=== PATIENT | female | born 1945 | race Caucasian/White ===

== ENCOUNTER 2016-12-16 17:53 | Inpatient (IN) | payer MEDICARE, OTHER ==
--- NOTE | ~2016-12-16 | CR269 ---
[facility] A Service of [facility] RADIOLOGY TEXT RESULTS PATIENT: JOHNNY ANTONIO LOCATION: A - : [birth year] UNIT #: [id number] AGE: [address]: Jimi Stoddard MD SEX: F ORDER DR: [id number] [facility] [address] [place], [place] [address] [id number] I MR#: [id number] #: [id number] NAME: JOHNNY ANTONIO : 1945 SEX: F STUDY DATE/TIME: 12/18/2016 8:33 UNIT: [facility] ROOM: [facility] STUDY DESCRIPTION: CR Upper GI and SBFT Attending Physician: Jimi Stoddard M.D. Ordering Physician: Ulisses Nava Jr., M.D. Primary Care Physician: Primary Care Physician No MEDICAL IMAGING REPORT This report is preliminary unless electronic signature is present EXAM Upper GI series with small bowel follow-through INDICTIONS Nausea and vomiting. This started on December 16, 2016. Patient has a history of multiple small bowel obstructions, may be related to adhesive disease. 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 She was subsequently administered thin barium only and fluoroscopic images were obtained of the upper abdomen. Patient was again noted to have abnormal esophageal motility with multiple tertiary contractions seen. She also has a moderate hiatal hernia. This has been seen on prior exams. The remainder of the stomach was grossly unremarkable and contrast passed easily into the duodenum. Small bowel transit time was dilated. I suspect there is probably some contrast within the colon on 3-hour 15-minute images and is definitive as identification noted on the 4 hour and 30 minutes as is identified on multiple prior studies this patient has dilated patulous loops of small bowel and mucosal fold irregularity likely reflecting some edema. 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 Exact transition point cannot be determined on the basis of this examination, but as on prior studies is favored to be new to the distal ileum. IMPRESSION 1. Partial small bowel obstruction with delayed transit time. Patient has dilated, patulous loops of small bowel, particularly within the left lower quadrant and transition point is favored to be within the [id number]-eysmzn ileum as has been identified on prior exams. 2. Abnormal esophageal motility with multiple tertiary contractions again noted. This has been identified on prior examinations. [facility] A Service of [facility] RADIOLOGY TEXT RESULTS PATIENT: JOHNNY ANTONIO LOCATION: [facility] 225-01 : [birth year] UNIT #: [id number] AGE: [address]: Jimi Stoddard MD SEX: F ORDER DR: 3. Moderate hiatal hernia. 4. Duodenal diverticulum. Total fluoroscopy time was 1.7 minutes and a total of 20 fluoroscopic images were obtained. Dictated by... Sharita Martinez M.D. THIS IS AN ELECTRONICALLY VERIFIED REPORT Sharita Martinez M.D. at 12/19/2016 4:57 PM CHARLES/cornelio TD: 12/19/2016 09:47 JOB #: [id number] MEDICAL IMAGING REPORT Page 1 of 1 COPY
--- NOTE | ~2016-12-16 | DS ---
Unit #: [id number] #: [id number] Patient: JOHNNY ANTONIO [id number] [address] [place], [place] [address] [id number] I MR#: [id number] NAME: JOHNNY ANTONIO. ROOM: 225 Age: 71 Sex: F Admission Date: 12/16/2016 : 1945 Discharge Date: 12/21/2016 Attending Physician: Jimi Stoddard M.D. Primary Care Physician: No Primary Care Physician DISCHARGE SUMMARY DISCHARGE DIAGNOSES 1. Small bowel obstruction. We have been treating this conservatively. The patient is passing stool and eating a regular diet without nausea or vomiting. 2. History of asthma. 3. Peptic ulcer disease. 4. History of remote deep venous thrombosis. 5. History of depression. 6. History of glaucoma. PROCEDURES None. 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 IMAGING 1. X-ray of abdomen on 12/16/16. Impression: Normal bowel gas pattern. No evidence of obstruction. 2. Small bowel follow through x-ray. Impression: Partial small bowel obstruction with delayed transient time. The patient has dilated, patulous loops of small bowel particularly within the left lower quadrant in transition zone and is favored to be within the mid to distal ileum, as have been identified on prior exams. Abnormal esophageal motility with multiple tertiary contractions again noted. This has been identified on prior examinations and a moderate hiatal hernia and four duodenal diverticulum. 3. X-ray abdomen on 12/19/16. Impression: Barium within the small bowel and colon in a nonobstructed pattern. On the day prior to admission, the patient's labs include BMP: Glucose 115, BUN less than 5, sodium 135, potassium 4.9, chloride 105, CO2 22, calcium 8.5. CBC: WBC 7.2, RBC 4.04, hemoglobin 7.9, hematocrit 34.4, MCV 85.2, MCH 27.1, MCHC 31.9, RDW 14.5, platelets 190, MPV 9.0. HOSPITAL COURSE The patient is a 71-year-old female with a past medical history of recurrent partial small bowel obstruction with chronic abdominal pain, multiple admissions in the past and history of multiple surgeries, small bowel obstruction, history of peptic ulcer disease, esophageal reflux disease, asthma, depression, chronic back pain, chronic headache and history of glaucoma. The patient presented to the emergency department due to abdominal pain, nausea and vomiting. She describes the pain has persistent since the morning of admission. She did have a bowel movement Unit #: [id number] #: [id number] Patient: JOHNNY ANTONIO on the morning of admission. After that, she has only been passing gas. She believes that her symptoms are similar to other small bowel obstruction. She was admitted for abdominal pain with high likelihood of small bowel obstruction. The patient underwent a CT (1) reports she had refused CT on admission. She also refused an NG tube for bowel decompression. She was seen in consultation with [facility] who had recommended conservative management, as the patient has had multiple surgeries and they were reluctant to perform another surgery. The patient also had radiation induced enteritis. The patient did have a small bowel follow through with result as dictated above. After she did have a bowel movement, a KUB upright was performed which saw that the barium was in the colon in a nonobstructed pattern. Therefore, the patient had her diet slowly advanced under Surgery's recommendation. At this time, the patient is able to have bowel movements. She really has no abdominal pain. She is tolerating a regular diet with no nausea, vomiting. Therefore, she is ready to be discharged home. DISCHARGE MEDICATION 1. Albuterol inhaler two puffs every four as needed for shortness of breath and/or wheezing. 2. Gabapentin 300 mg orally daily. 3. Amitriptyline 25 mg orally twice daily. 4. Phenergan 12.5 mg every six hours as needed for nausea and vomiting. Prescription for 12 was given. 5. Colace 100 mg orally daily. 6. Xalatan one drop into each eye at bedtime. 7. Protonix 40 mg orally daily. Patient discharged home in stable condition. Follow up with her primary care physician within one to two weeks. DIET Nonrestricted. ACTIVITY Nonrestricted. Dictated by... Ronnie Gloria PA-C for Carter Bejarano/cherelle TD: 12/22/2016 11:14 JOB #: [id number] DISCHARGE SUMMARY Page 1 of 1 X X DISCHARGE SUMMARY
--- NOTE | ~2016-12-16 | CR4 ---
[facility] A Service of [facility] RADIOLOGY TEXT RESULTS PATIENT: JOHNNY ANTONIO LOCATION: [facility] : [birth year] UNIT #: [id number] AGE: [address]: Jimi Stoddard MD SEX: F ORDER DR: [id number] [facility] [address] [place], [place] [address] [id number] I MR#: [id number] Acc #: [id number] NAME: JOHNNY ANTONIO : 1945 SEX: F STUDY DATE/TIME: 12/19/2016 7:37 UNIT: [facility] ROOM: [facility] STUDY DESCRIPTION: CR Abdomen Flat Upright or Dec Attending Physician: Jimi Stoddard M.D. Ordering Physician: Isaak Baxter M.D. Primary Care Physician: Primary Care Physician No MEDICAL IMAGING REPORT This report is preliminary unless electronic signature is present EXAM Flat and upright abdomen INDICATION Abdominal distension since December 16. COMPARISON 12/16/2016. FINDINGS Barium is seen within the small bowel and colon in a nonobstructed pattern. There is no free air under the diaphragm. A right hip arthroplasty is present. IMPRESSION Barium within the small bowel and colon in a nonobstructed pattern. Dictated by... Dereje Jorge M.D. THIS IS AN ELECTRONICALLY VERIFIED REPORT Dereje Jorge M.D. at 12/20/2016 5:12 PM JAVY/jason TD: 12/19/2016 09:38 JOB #: [id number] MEDICAL IMAGING REPORT Page 1 of 1 COPY
--- NOTE | ~2016-12-16 | CR7 ---
[facility] A Service of [facility] & [facility] RADIOLOGY TEXT RESULTS PATIENT: JOHNNY ANTONIO LOCATION: [place] [address] : [birth year] UNIT #: [id number] AGE: [address]: Kayla Sim MD SEX: F ORDER DR: [id number] [facility] [address]. [place], [place] [address] [id number] I MR#: [id number] Acc #: [id number] NAME: JOHNNY ANTONIO : 1945 SEX: F STUDY DATE/TIME: 12/16/2016 19:02 UNIT: [facility] ROOM: [id number] STUDY DESCRIPTION: CR Abdomen Single AP View Attending Physician: Jimi Stoddard M.D. Ordering Physician: Teetee Machuca M.D. Primary Care Physician: No Primary Care Physician MEDICAL IMAGING REPORT This report is preliminary unless electronic signature is present EXAM Abdomen INDICATIONS Abdominal pain, bloating since 2 o'clock today. FINDINGS A supine view was obtained. The bowel gas pattern is normal. There is right hip prosthesis present. There is postoperative change with fusion of L4 and L5. IMPRESSION Normal bowel gas pattern. No evidence of obstruction Dictated by... Gabriel Peng M.D. THIS IS AN ELECTRONICALLY VERIFIED REPORT Gabriel Peng M.D. at 12/18/2016 7:14 AM NALDO/maranda TD: 12/16/2016 22:36 JOB #: [id number] MEDICAL IMAGING REPORT Page 1 of 1 COPY
--- NOTE | ~2016-12-16 | HP ---
Unit #: [id number] #: [id number] Patient: JOHNNY ANTONIO [id number] [address] [place], [place] [address] [id number] I MR#: [id number] NAME: JOHNNY ANTONIO. ROOM: 225 Age: 71 Sex: F Admission Date: 12/16/2016 : 1945 Attending Physician: Jimi Stoddard M.D. Primary Care Physician: No Primary Care Physician HISTORY AND PHYSICAL CHIEF COMPLAINT Abdominal pain, nausea. HISTORY OF PRESENT ILLNESS This is a 71-year-old very pleasant lady with a history of recurrent partial small bowel obstruction with chronic abdominal pain, multiple admissions in the past and history of multiple surgeries, partial small bowel obstruction being resolved with conservative treatment in the past, history of peptic ulcer disease, gastroesophageal reflux disease, asthma, depression, chronic back pain, chronic headache and history of glaucoma. She presented to the emergency room today with a chief complaint of having abdominal pain and nausea, which she described as persistent pain since morning. She had her last bowel movement this morning. After that is not passing gas. She thinks that her symptoms are similar to the previous episode of small bowel obstruction. She denies fever, chills, cough, diarrhea, blood in the stool or any other complaint. PAST MEDICAL HISTORY 1. History of recurrent partial small bowel obstruction along with chronic abdominal pain, requiring multiple admissions. 2. History of lysis of adhesion resection in the past. 3. 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 4. History of peptic ulcer disease. Last EGD in 05/2016, revealing large hiatal hernia, (1) ulcers/gastritis/ esophageal ring, which was dilated by Dr. Aceves. 5. History of asthma. 6. Degenerative joint disease. 7. Depression. 8. Chronic back pain, status post multiple back surgeries. 9. History of chronic headache. 10. History of left arm DVT in 05/2015 which was treated with Eliquis at that time. PAST SURGICAL HISTORY 1. History of wide esophageal resection in the past. 2. History of total abdominal hysterectomy and bilateral salpingo-oophorectomy along with radiation therapy in 2000 for endometrial carcinoma. 3. History of EGD. 4. History of multiple back surgeries. 5. 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 6. History of bilateral carpal tunnel release and transposition of left ulnar nerve. Unit #: [id number] #: [id number] Patient: JOHNNY ANTONIO 7. History of laparoscopic cholecystectomy in 10/2012. 8. History of right hip revision times two. 9. History of removal of scar from abdomen. SOCIAL HISTORY The patient lives alone, but her son lives across the street. She stopped smoking 25-26 years ago. Does not drink alcohol. FAMILY HISTORY History of (2) ALLERGIES Dilaudid, Demerol and Zofran. HOME MEDICATIONS 1. Colace 100 mg daily. 2. Latanoprost 2.5 eyedrops daily. 3. Ventolin 2 puffs q.4 h. p.r.n. 4. Phenergan 25 mg p.o. q.6 h. p.r.n. 5. Amlodipine 25 mg daily. 6. Gabapentin 300 mg daily. 7. Protonix 40 mg daily. REVIEW OF SYSTEMS Negative except as per history of present illness. PHYSICAL EXAMINATION GENERAL: Middle-aged female lying in the bed comfortably. Currently not in any distress. She is alert, awake and oriented times three. VITALS: Temperature 98.7, heart rate 101, respiratory rate 18, blood pressure 131/66, oxygen saturation 99% on room air. HEENT: Head is normocephalic, atraumatic. NECK: Supple. No jugular venous distension. No thyromegaly. No lymphadenopathy. LUNGS: Clear to auscultation. No rhonchi. No wheezing. HEART: S1 and S2. Regular rate and rhythm. ABDOMEN: Soft, mild generalized lower abdominal tenderness. Positive bowel sounds. No guarding. No rigidity. SKIN: Color normal. Warm and dry. EXTREMITIES: Inspection normal. No cyanosis, clubbing or edema. NEUROLOGIC: She is alert and oriented times four. Cranial nerves II through XII intact. Sensation is normal. Motor 5/5 on both sides. PSYCHIATRIC: She has normal mood and affect. DIAGNOSTIC STUDIES IMAGING: X-ray of the abdomen is unremarkable. LABORATORY: Urinalysis is negative. Chemistry, sodium 137, potassium 3.6, chloride 102, glucose 98, BUN 11, creatinine 0.9, LFTs within normal limits. Amylase and lipase normal. Lactic acid level 0.9, INR 0.9. CBC, white blood cell count 10, hemoglobin 12, hematocrit 39, platelets 215. ASSESSMENT 1. Abdominal pain with nausea, with a history of recurrent partial small bowel obstruction. Symptoms similar to previous small bowel obstruction. Her symptoms in the past most often resolved with conservative treatment. CT scan is not done today. She has had multiple CT scans this year. She is reluctant to go for CT at this Unit #: [id number] #: [id number] Patient: JOHNNY ANTONIO time. She refuses NG tube placement. Will keep the patient n.p.o. and IV fluids. Ask LSA to evaluate. 2. History of peptic ulcer disease/large hiatal hernia/gastritis with a history of esophageal ring. IV Protonix. 3. History of asthma. Continue Ventolin p.r.n. 4. History of depression. 5. History of glaucoma. 6. Degenerative joint disease/chronic back pain. 7. DVT prophylaxis. Will place the patient on SCDs. Dictated by Carter Sanchez TD: 12/17/2016 05:59 JOB #: [id number] HISTORY AND PHYSICAL Page 1 of 1 X X HISTORY AND PHYSICAL
[~2016-12-16 17:53] MED LIST: ACETAMINOPHEN PO; ADVAIR 100-501 EACH IH; ADVAIR 250-501 EAC1 IH; ADVAIR 250-501 EACH IH; ADVAIR 250-501 EACH INH; ADVAIR 2501 DISK W/1 INH; ADVAIR 2501 DISK W/D PO; ALBUTEROL17 G1 IH; ALBUTEROL17 GM INH; AMITRIPTYLINE H25 MG PO; AMITRIPTYLINE100 MG PO; AMITRYPTYLINE PO; AMOXICILLIN875 MG PO; ANEXSIA 7.5/3251 TA1 PO; ARTHROTEC 501 TAB.EC PO; BACLOFEN10 MG PO; BACLOFEN20 M1 PO; BACLOFEN20 MG PO; BENTYL20 M1 PO; BENTYL20 MG; BENTYL20 MG PO; BENZONATATE PO; CIPRO PO; COLACE PO; COUMADIN PO; CVS PHARMACY; CYTOTEC PO; DICLOFENAC PO; DICYCLOMINE HCL20 MG PO; DOCUSATE SODIU100 MG PO; DOK100 MG PO; DOXEPIN; DOXEPIN HCL25 MG PO; DOXEPIN PO; ELIQUIS5 MG PO; FERRO-TIME325 MG PO; FERROUS GL325 ( 36 ) PO; FERROUS SULFATE1 TAB PO; FLEXERIL; FLEXERIL10 MG PO; GABAPENTIN300 M2 PO; GABAPENTIN300 MG PO; HYDROCODON-ACE1 EAC5 PO; HYDROCODON-ACE1 EACH PO; HYDROCODONE-APA1 T44 PO; IRON SUPPLEMENT1 TAB PO; IRON325 ( 65 ) PO; IRON325 ( 652 PO; LATANOPROST2.5 ML OP; LATANOPROST2.5 ML OU; LEVAQUIN PO; LIORESAL10 MG PO; LORTAB 10-5001 EACH PO; LORTAB 5-325 M1 EACH PO; LORTAB 5/500 TA1 TA1 PO; LORTAB 7.5-5001 TAB PO; LOVENOX SUBQ; MEDROL PO; MELOXICAM15 MG PO; MIRALAX255 GM PO; MOBIC PO; MOBIC15 MG PO; MOBIC7.5 MG/5 M PO; MOTRIN600 MG PO; MUCINEX D ER T1 EAC1 PO; MUCINEX D ER T1 EACH PO; MUCINEX DM ER1 EAC1 PO; MUCINEX DM TABL1 BOX PO; MUCINEX DM1 TAB.SR . PO; MUCINEX22 ML PO; MUCUS ER600 MG PO; NEURONTIN; NEURONTIN PO; NEURONTIN300 MG PO; NORCO 5/325 TAB1 TAB PO; OMEPRAZOLE40 MG PO; OXYCONTIN; OXYIR5 MG; PANTOPRAZOLE SO40 MG PO; PERCOCET5/325 PO; PHENERGAN; PHENERGAN PO; PHENERGAN SUPP25 MG PR; PHENERGAN12.5 M1 PR; PHENERGAN25 M1 DOB; PHENERGAN25 M1 PO; PHENERGAN25 MG PO; PREMARIN; PROMETHAZINE HC25 MG PO; PROTONIX; PROTONIX PO; PROTONIX20 MG PO; REGLAN PO; REGLAN10 MG PO; SINGULAIR PO; TESSALON200 MG PO; ULTRAM PO; VENTOLIN HFA 90MCG INH; VENTOLIN IH; VENTOLIN5 MG/ML IH; VENTOLIN5 MG/ML INH; VICODIN 5/1 TAB 5/50 PO; VICODIN 5/500 T1 TAB PO; XALATAN OP; XALATAN OU; Z-PAK; ZITHROMAX PO; ZOFRAN PO; [UNRECOGNIZED DRUG - REMARK]; [UNRECOGNIZED DRUG - REMARK]
[2016-12-16 19:06] LABS: BASOPHIL% 0.3 % (0-2.5); EOSINOPHIL% 0.4 % (0.0-7.0); HEMATOCRIT 39.8 % (35.0-45.0); HEMOGLOBIN 12.8 gm/dL (12.0-16.0); LYMPHOCYTE# 1.9 X10e3 (1.0-3.5); MEAN CELL VOLUME 84.6 FL (83-96); MEAN CORPUSCULAR HEMOGLOBIN 27.3 PG (28-34); MEAN CORPUSCULAR HGB CONC 32.3 g/dL (30-36); MEAN PLATELET VOLUME 9.5 FL (6.5-11.5); MONOCYTE# 0.7 X10e3 (0-1.0); MONOCYTE% 6.4 % (3.0-12.0); NEUTROPHIL# 8.1 X10e3 (1.5-7.1); NEUTROPHIL% 74.9 % (40-75); PLATELET COUNT 215 X10e3 (140-420); RED CELL DISTRIBUTION WIDTH 15.3 % (11.0-15.5); WHITE BLOOD COUNT 10.8 X10e3 (4.0-10.5)
[2016-12-16 19:17] LABS: DIFF IND NO
[2016-12-16 19:25] LABS: INR 0.9; PARTIAL THROMBOPLASTIN TIME 23.4 SECONDS (23.5-31.3); PROTHROMBIN TIME (PATIENT) 9.4 SECONDS (9.6-11.5)
[2016-12-16 19:29] LABS: ALBUMIN SERUM 4.3 g/dL (3.5-5.0); BILIRUBIN, DIRECT 0.1 mg/dL (0.0-0.2); BILIRUBIN,INDIRECT 0.2 mg/dL (0.0-0.9); BILIRUBIN,TOTAL 0.3 mg/dL (0.2-2.0); BUN/CREATININE RATIO 12.22; CREATININE SERUM 0.9 mg/dL (0.6-1.4); GLOM FILT RATE Estimated 65.3 mL/min (>60); POTASSIUM 3.6 mmol/L (3.5-5.1)
[2016-12-16 20:04] LABS: URINE SOURCE CLEAN CATCH
[2016-12-16 20:09] LABS: URINE APPEARANCE CLEAR; URINE BILIRUBIN NEG (NEG); URINE BLOOD TRACE (NEG); URINE COLOR YELLOW; URINE GLUCOSE NEG (NEG); URINE KETONE NEG (NEG); URINE LEUKOCYTE ESTERASE NEG (NEG); URINE NITRATE NEG (NEG); URINE PROTEIN NEG (NEG); URINE SPECIFIC GRAVITY 1.008 (1.003-1.035); URINE UROBILINOGEN 0.2 MG/DL (NEG)
[2016-12-16 20:12] LABS: URINE BACTERIA AUWI NEG (NEGATIVE); URINE SQUAMOUS EPITHELIAL CELL NONE SEEN /[HPF]; UWBCS1 AUWI 0-2 (0-5)
[2016-12-16 20:18] LABS: CULTURE INDICATED? NO
[2016-12-16] MEDS ORDERED: PHENERGAN25 M1 PO (20:26)
[2016-12-16] MEDS ORDERED: ALBUTEROL17 GM INH (20:26)
[2016-12-16] MEDS ORDERED: GABAPENTIN300 MG PO (20:27)
[2016-12-16] MEDS ORDERED: AMITRIPTYLINE H25 MG PO (20:27)
[2016-12-16] MEDS ORDERED: DOCUSATE SODIU100 MG PO (20:27)
[2016-12-16] MEDS ORDERED: PANTOPRAZOLE SO40 MG PO (20:27)
[2016-12-16] MEDS ORDERED: LATANOPROST2.5 ML OU (20:28)
[2016-12-17 06:38] LABS: CALCIUM SERUM 8.2 mg/dL (8.4-10.2); CREATININE SERUM 0.7 mg/dL (0.6-1.4); GLOM FILT RATE Estimated 88.4 mL/min (>60); POTASSIUM 4.3 mmol/L (3.5-5.1)
[2016-12-18 07:00] LABS: HEMATOCRIT 34.8 % (35.0-45.0); HEMOGLOBIN 11.1 gm/dL (12.0-16.0); MEAN CELL VOLUME 85.3 FL (83-96); MEAN CORPUSCULAR HEMOGLOBIN 27.2 PG (28-34); MEAN CORPUSCULAR HGB CONC 31.9 g/dL (30-36); MEAN PLATELET VOLUME 9.1 FL (6.5-11.5); RED BLOOD COUNT 4.09 X10e (3.90-5.30); RED CELL DISTRIBUTION WIDTH 14.8 % (11.0-15.5); WHITE BLOOD COUNT 7.5 X10e3 (4.0-10.5)
[2016-12-18 07:25] LABS: ALBUMIN SERUM 3.3 g/dL (3.5-5.0); ALKALINE PHOSPHATASE 57 U/L (32-92); ALT (SGPT) 20 U/L (10-40); AST (SGOT) 27 U/L (10-42); BILIRUBIN,TOTAL 0.7 mg/dL (0.2-2.0); BLOOD UREA NITROGEN <5 mg/dL (9-23); BUN/CREATININE RATIO 8.33; CALCIUM SERUM 8.6 mg/dL (8.4-10.2); CARBON DIOXIDE 26 mmol/L (22-31); CHLORIDE 105 mmol/L (100-111); CREATININE SERUM 0.6 mg/dL (0.6-1.4); GLUCOSE FASTING 97 mg/dL (70-110); POTASSIUM 3.4 mmol/L (3.5-5.1); PROTEIN TOTAL SERUM 6.4 g/dL (6.0-8.3); SODIUM 138 mmol/L (135-145)
[2016-12-19 08:31] LABS: BUN/CREATININE RATIO 6.25; CALCIUM SERUM 8.6 mg/dL (8.4-10.2); CREATININE SERUM 0.8 mg/dL (0.6-1.4); GLOM FILT RATE Estimated 75.3 mL/min (>60); MAGNESIUM 1.9 mg/dL (1.6-3.0); POTASSIUM 4.2 mmol/L (3.5-5.1)
[2016-12-20 07:47] LABS: CALCIUM SERUM 8.5 mg/dL (8.4-10.2); CARBON DIOXIDE 22 mmol/L (22-31); CHLORIDE 105 mmol/L (100-111); CREATININE SERUM 0.6 mg/dL (0.6-1.4); GLUCOSE FASTING 115 mg/dL (70-110); POTASSIUM 4.9 mmol/L (3.5-5.1); SODIUM 135 mmol/L (135-145)
[2016-12-20 07:59] LABS: BLOOD UREA NITROGEN <5 mg/dL (9-23); BUN/CREATININE RATIO 8.33
[2016-12-20 11:43] LABS: HEMATOCRIT 34.4 % (35.0-45.0); HEMOGLOBIN 10.9 gm/dL (12.0-16.0); MEAN CELL VOLUME 85.2 FL (83-96); MEAN CORPUSCULAR HEMOGLOBIN 27.1 PG (28-34); MEAN CORPUSCULAR HGB CONC 31.9 g/dL (30-36); RED BLOOD COUNT 4.04 X10e (3.90-5.30); RED CELL DISTRIBUTION WIDTH 14.5 % (11.0-15.5); WHITE BLOOD COUNT 7.2 X10e3 (4.0-10.5)
== END 2016-12-21 12:21 | disposition home or self-care (01) | DRG 390 ==
LOC: CED 17:53 → C2A 20:45 → CEDOF 20:45 → CED 21:25 → C2A 21:25 → CEDOF 22:39 → C2A 22:39
PROVIDERS: Emergency Medicine; Internal Medicine; Physician Assistant Medical; Surgery
PROC: 05H533Z Insertion of Infusion Device into Right Subclavian Vein, Percutaneous Approach (ICD-10-PCS; principal; 2016-12-18)
PROC: B546ZZA Ultrasonography of Right Subclavian Vein, Guidance (ICD-10-PCS; 2016-12-18)
DX: K56.5 Intestinal adhesions [bands] with obstruction (postinfection) (principal); F32.9 Major depressive disorder, single episode, unspecified; Z87.11 Personal history of peptic ulcer disease; K21.9 Gastro-esophageal reflux disease without esophagitis; J45.909 Unspecified asthma, uncomplicated; R51 Headache; H40.9 Unspecified glaucoma; M54.9 Dorsalgia, unspecified; G89.29 Other chronic pain; M19.90 Unspecified osteoarthritis, unspecified site; Z86.718 Personal history of other venous thrombosis and embolism; Z90.710 Acquired absence of both cervix and uterus; Z90.49 Acquired absence of other specified parts of digestive tract; Z96.641 Presence of right artificial hip joint; K44.9 Diaphragmatic hernia without obstruction or gangrene
CPT/HCPCS: 36415; 74000; 74020; 74245; 80048; 80053; 80076; 81003; 83605; 83690; 83735; 85025; 85027; 85610; 85730; 94760; 96361; 96374; 96376; 99285; C9113; J1650; J2270; J2550

== ENCOUNTER 2017-02-12 23:15 | Emergency (ER) | payer MEDICARE, OTHER ==
--- NOTE | ~2017-02-12 | CR2 ---
[facility] A Service of [facility] & [facility] RADIOLOGY TEXT RESULTS PATIENT: JOHNNY ANTONIO LOCATION: [facility] : [birth year] UNIT #: [id number] AGE: [address]: Anmol Dent MD SEX: F ORDER DR: [id number] [facility] [address] [place], [place] [address] [id number] MR#: [id number] Acc #: [id number] NAME: JOHNNY ANTONIO : 1945 SEX: F STUDY DATE/TIME: 02/13/2017 0:34 UNIT: [facility] ROOM: STUDY DESCRIPTION: CR Abdomen Acute Series Attending Physician: Anmol Dent M.D. Ordering Physician: Anmol Dent M.D. Primary Care Physician: No Primary Care Physician MEDICAL IMAGING REPORT This report is preliminary unless electronic signature is present EXAM Acute abdominal series. INDICATIONS Generalized abdominal pain. Nausea and vomiting. Prior bowel obstruction. FINDINGS CHEST: PA view of the chest compared to 11/16/2015. The heart and mediastinal contours are within normal limits. Patient has a small hiatal hernia. No focal consolidation. ABDOMEN: The bowel gas pattern is nonobstructive. No free intraperitoneal air. There has been prior cholecystectomy and right total hip arthroplasty. Degenerative changes are noted in the lumbar spine. IMPRESSION 1. No acute findings. Nonobstructive bowel gas pattern. Dictated by... Kody Coronado M.D. THIS IS AN ELECTRONICALLY VERIFIED REPORT Kody Coronado M.D. at 02/13/2017 10:47 PM SHELL/ryan TD: 02/13/2017 18:13 JOB #: [id number] MEDICAL IMAGING REPORT Page 1 of 1 COPY
[2017-02-13 01:02] LABS: URINE SOURCE CLEAN CATCH
[2017-02-13 01:11] LABS: URINE APPEARANCE CLEAR; URINE BILIRUBIN NEG (NEG); URINE BLOOD TRACE (NEG); URINE COLOR YELLOW; URINE GLUCOSE NEG (NEG); URINE KETONE NEG (NEG); URINE LEUKOCYTE ESTERASE 2+ (NEG); URINE NITRATE NEG (NEG); URINE PH 6.5 (5-8); URINE PROTEIN NEG (NEG); URINE SPECIFIC GRAVITY 1.017 (1.003-1.035); URINE UROBILINOGEN 0.2 MG/DL (NEG)
[2017-02-13 01:14] LABS: URINE BACTERIA AUWI NEG (NEGATIVE); URINE SQUAMOUS EPITHELIAL CELL NONE SEEN /[HPF]
[2017-02-13 01:23] LABS: BASOPHIL# 0.1 X10e3 (0-0.3); BASOPHIL% 0.7 % (0-2.5); EOSINOPHIL# 0.1 X10e3 (0-0.7); EOSINOPHIL% 1.4 % (0.0-7.0); HEMATOCRIT 35.7 % (35.0-45.0); HEMOGLOBIN 11.5 gm/dL (12.0-16.0); LYMPHOCYTE# 1.9 X10e3 (1.0-3.5); LYMPHOCYTE% 20.8 % (17.0-45.0); MEAN CELL VOLUME 84.2 FL (83-96); MEAN CORPUSCULAR HEMOGLOBIN 27.2 PG (28-34); MEAN CORPUSCULAR HGB CONC 32.3 g/dL (30-36); MEAN PLATELET VOLUME 8.8 FL (6.5-11.5); MONOCYTE# 0.7 X10e3 (0-1.0); MONOCYTE% 8.1 % (3.0-12.0); NEUTROPHIL# 6.3 X10e3 (1.5-7.1); PLATELET COUNT 221 X10e3 (140-420); RED BLOOD COUNT 4.24 X10e (3.90-5.30); RED CELL DISTRIBUTION WIDTH 14.7 % (11.0-15.5); WHITE BLOOD COUNT 9.1 X10e3 (4.0-10.5)
[2017-02-13 01:28] LABS: DIFF IND NO
[2017-02-13 01:36] LABS: CULTURE INDICATED? NO
[2017-02-13 01:53] LABS: ALBUMIN SERUM 3.8 g/dL (3.5-5.0); BILIRUBIN, DIRECT 0.1 mg/dL (0.0-0.2); BILIRUBIN,INDIRECT 0.3 mg/dL (0.0-0.9); BILIRUBIN,TOTAL 0.4 mg/dL (0.2-2.0); BUN/CREATININE RATIO 12.22; CALCIUM SERUM 8.5 mg/dL (8.4-10.2); CREATININE SERUM 0.9 mg/dL (0.6-1.4); GLOM FILT RATE Estimated 65.3 mL/min (>60); POTASSIUM 3.8 mmol/L (3.5-5.1); PROTEIN TOTAL SERUM 7.1 g/dL (6.0-8.3)
== END 2017-02-13 02:30 | disposition home or self-care (01) ==
LOC: CED 23:15
PROVIDERS: Emergency Medicine
DX: K56.60 Unspecified intestinal obstruction (principal); Z85.42 Personal history of malignant neoplasm of other parts of uterus; Z98.890 Other specified postprocedural states; Z79.899 Other long term (current) drug therapy; Z88.8 Allergy status to other drugs, medicaments and biological substances
CPT/HCPCS: 36415; 74022; 80048; 80076; 81003; 82150; 83690; 85025; 96361; 96374; 99284; J2270; J2550

== ENCOUNTER 2017-02-13 19:11 | Emergency (ER) | payer MEDICARE, OTHER ==
[2017-02-13 20:33] LABS: URINE SOURCE CLEAN CATCH
[2017-02-13 20:38] LABS: URINE APPEARANCE CLOUDY; URINE BILIRUBIN NEG (NEG); URINE BLOOD 2+ (NEG); URINE COLOR YELLOW; URINE GLUCOSE NEG (NEG); URINE KETONE NEG (NEG); URINE LEUKOCYTE ESTERASE 3+ (NEG); URINE NITRATE POS (NEG); URINE PROTEIN NEG (NEG); URINE SPECIFIC GRAVITY 1.017 (1.003-1.035); URINE UROBILINOGEN 0.2 MG/DL (NEG)
[2017-02-13 20:40] LABS: CULTURE INDICATED? YES; URINE BACTERIA AUWI NEG (NEGATIVE); URINE SQUAMOUS EPITHELIAL CELL NONE SEEN /[HPF]; UWBCS1 AUWI INNUM (0-5)
== END 2017-02-13 21:15 | disposition home or self-care (01) ==
LOC: CFTX 19:11 → CED 19:11 → CFTX 20:48
PROVIDERS: Physician Assistant
DX: N30.00 Acute cystitis without hematuria (principal); J44.9 Chronic obstructive pulmonary disease, unspecified; K21.9 Gastro-esophageal reflux disease without esophagitis; Z87.440 Personal history of urinary (tract) infections; Z90.49 Acquired absence of other specified parts of digestive tract; Z90.710 Acquired absence of both cervix and uterus; Z88.8 Allergy status to other drugs, medicaments and biological substances
CPT/HCPCS: 81003; 87086; 99283